=== PATIENT | female | born 1995 ===

== ENCOUNTER 2022-09-21 00:05 | Inpatient (IN) | payer BC, MEDICAID ==
[2022-09-21] MEDS ORDERED: Water For Irrigation,Sterile 1,000 ML Container IRR PRN (00:13)
[2022-09-21] MEDS ORDERED: Lidocaine 1% 50 ML MDV INJECT PRN (00:13)
[2022-09-21] MEDS ORDERED: Sodium Chloride 0.9% 2.5 ML Syringe FLUSH PRN (00:13)
[2022-09-21] MEDS ORDERED: Terbutaline 1 MG/ML SDV SUBCUT PRN (00:13)
[2022-09-21] MEDS ORDERED: Carboprost Tromethamine 250 MCG/1 ML Amp IM PRN (00:13)
[2022-09-21] MEDS ORDERED: Misoprostol 25 MCG (1/4 of 100 MCG) Tab VAG PRN ×2 (00:13)
[2022-09-21] MEDS ORDERED: Sodium Chloride 0.9% 10 ML Syringe FLUSH PRN (00:13)
[2022-09-21] MEDS ORDERED: Methylergonovine 0.2 MG/1 ML Amp IM PRN (00:13)
[2022-09-21] MEDS ORDERED: Sodium Chloride 0.9% 20 ML SDV IV PRN (00:13)
[2022-09-21] MEDS ORDERED: Tranexamic Acid 1,000 MG in Sodium Chloride 0.9% 100 ML IV PRN (00:13)
[2022-09-21] MEDS ORDERED: Misoprostol 200 MCG Tab PO PRN (00:13)
[2022-09-21] MEDS ORDERED: Oxytocin/0.9 % Sodium Chloride 30 UNIT/500 ML BAG IV SCH ×2 (00:15)
[2022-09-21] MEDS: Lactated Ringers 1,000 ML IV SCH ×3 (02:35→18:41)
[2022-09-21] MEDS: Butorphanol 1 MG/ML SDV IVPUSH PRN ×3 (12:55→18:51)
[2022-09-21] MEDS ORDERED: Ondansetron 4 MG/2 ML SDV IVPUSH PRN (18:57)
[2022-09-22] MEDS ORDERED: Ropivacaine 0.5% 5 MG/ML 30 ML SDV ONE (00:28)
[2022-09-22] MEDS ORDERED: Ondansetron 4 MG/2 ML SDV ONE (00:28)
[2022-09-22] MEDS ORDERED: Dexmedetomidine 200 MCG/2 ML SDV ONE (00:28)
[2022-09-22] MEDS ORDERED: Oxytocin 10 Units/1 ML SDV ONE (00:28)
[2022-09-22] MEDS ORDERED: ceFAZolin 1 GM Vial ONE (00:28)
[2022-09-22] MEDS ORDERED: Water For Injection, Sterile 40 ML ONE (00:28)
[2022-09-22] MEDS ORDERED: Bupivacaine 0.5% 10 ML SDV ONE (00:28)
[2022-09-22] MEDS ORDERED: Dexamethasone 4 MG/ML 5 ML MDV ONE (00:28)
[2022-09-22] MEDS ORDERED: Azithromycin 500 MG Vial ONE (00:28)
[2022-09-22] MEDS ORDERED: Morphine PF 10 MG/10 ML SDV ONE (00:29)
[2022-09-22] MEDS ORDERED: Water For Injection, Sterile 20 ML ONE (01:08)
[2022-09-22] MEDS ORDERED: Phenylephrine 1% 10 MG/ML SDV ONE (01:08)
[2022-09-22] MEDS ORDERED: ePHEDrine 50 MG/ML SDV ONE (01:32)
[2022-09-22] MEDS ORDERED: diphenhydrAMINE 50 MG/ML SDV IVPUSH PRN ×2 (02:10→02:53)
[2022-09-22] MEDS ORDERED: Ondansetron 4 MG/2 ML SDV IVPUSH PRN ×2 (02:10→02:53)
[2022-09-22] MEDS ORDERED: Lanolin 100% Cream 7 GM Tube TOP PRN (02:10)
[2022-09-22] MEDS ORDERED: Bisacodyl 10 MG Supp RECTAL PRN (02:10)
[2022-09-22] MEDS ORDERED: Oxytocin 10 Units/1 ML SDV IM PRN (02:10)
[2022-09-22] MEDS ORDERED: Acetaminophen/oxyCODONE 325-5 MG Tab PO PRN (02:10)
[2022-09-22] MEDS: Ketorolac 30 MG/ML SDV IVPUSH SCH ×4 (02:15→20:06)
[2022-09-22] MEDS ORDERED: Lactated Ringers 1,000 ML IV SCH (02:15)
[2022-09-22] MEDS: Phenylephrine HCl In 0.9% NaCl 1 MG/10 ML Vial IVPUSH SCH ×3 (02:45→04:02)
[2022-09-22] MEDS ORDERED: Nalbuphine HCl 10 MG/ 1ML Amp IVPUSH PRN (02:51)
[2022-09-22] MEDS ORDERED: Naloxone 0.4 MG/ML SDV IVPUSH PRN (02:53)
[2022-09-22] MEDS ORDERED: ePHEDrine 50 MG/ML SDV IVPUSH PRN (02:54)
[2022-09-22] MEDS: Simethicone 80 MG Tab.Chew PO SCH (06:03)
[2022-09-22] MEDS: Docusate Sodium 100 MG Cap PO SCH (20:07)
[2022-09-23] MEDS: Ketorolac 30 MG/ML SDV IVPUSH SCH (03:46)
[2022-09-23] MEDS: Simethicone 80 MG Tab.Chew PO SCH ×3 (07:12→18:25)
[2022-09-23] MEDS: Docusate Sodium 100 MG Cap PO SCH ×3 (07:13→20:04)
[2022-09-23] MEDS: Phenylephrine HCl In 0.9% NaCl 1 MG/10 ML Vial IVPUSH SCH ×2 (08:59→09:00)
[2022-09-23] MEDS: Acetaminophen/oxyCODONE 325-5 MG Tab PO PRN ×2 (15:32→20:07)
[2022-09-23] MEDS: Ibuprofen 800 MG Tab PO PRN (20:10)
[2022-09-24] MEDS: Ibuprofen 800 MG Tab PO PRN (04:13)
[2022-09-24] MEDS: Acetaminophen/oxyCODONE 325-5 MG Tab PO PRN (04:14)
[2022-09-24] MEDS: Simethicone 80 MG Tab.Chew PO SCH ×2 (06:25)
== END 2022-09-24 12:30 | disposition home or self-care (01) | DRG 788 ==
LOC: MW.OBCHECK 00:05 → MW.OB 00:08 → MW.OBCHECK 00:14 → MW.OB 00:14 → OBSVTOIN 09-22 01:19 → MW.OB 09-22 04:43
PROVIDERS: ADMIT Obstetrics & Gynecology; ATTEND Obstetrics & Gynecology
PROC: 10D00Z1 Extraction of Products of Conception, Low, Open Approach (ICD-10-PCS; principal; 2022-09-22)
PROC: 3E0P7VZ Introduction of Hormone into Female Reproductive, Via Natural or Artificial Opening (ICD-10-PCS; 2022-09-22)
PROC: 3E033VJ Introduction of Other Hormone into Peripheral Vein, Percutaneous Approach (ICD-10-PCS; 2022-09-22)
DX: O48.0 Post-term pregnancy (principal); O36.63X0 Maternal care for excessive fetal growth, third trimester, not applicable or unspecified; O99.214 Obesity complicating childbirth; Z37.0 Single live birth; O77.0 Labor and delivery complicated by meconium in amniotic fluid; O62.1 Secondary uterine inertia; Z20.822 Contact with and (suspected) exposure to COVID-19; Z3A.41 41 weeks gestation of pregnancy
CPT/HCPCS: 36415; 59025; 82803; 85014; 85018; 85027; 86592; 86850; 86900; 86901; A9270-GY; J0456; J0595; J0690; J1100; J1885; J2274; J2370; J2405; J2590; J2795; J3490; J7120; U0002